=== PATIENT | female | born 1950 | race Caucasian/White ===

== ENCOUNTER → 2018-02-03 | Outpatient (CLI) | payer BC ==
[~2018-02-03] MED LIST: OMEP-10 PO; SULF1TAB7 PO; TRM50T PO
--- NOTE | 2018-02-03 16:44 | Diagnostic Imaging Report ---
PROCEDURE: US right lower extremity venous. TECHNIQUE: Multiple real-time grayscale images were obtained over the right lower extremity in various projections. Additional duplex Doppler and color Doppler images were also obtained. INDICATION: Right lower extremity swelling and pain. COMPARISON: None. FINDINGS: Visualized deep and superficial venous system is patent. There is no mass or DVT. There is no fluid collection. IMPRESSION: Negative right lower extremity venous Doppler. Dictated by: Dictated on workstation # [id number]
== END ==
LOC: RAD 15:52
PROVIDERS: ATTEND Nurse Practitioner Family
DX: M79.604 Pain in right leg (principal)